=== PATIENT | male | born 2005 | race Caucasian/White ===

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

== ENCOUNTER 2024-09-17 22:14 | Emergency (ER) | payer OTHER, SELFPAY ==
[2024-09-17 22:16] VITALS: BP 155/99; PULSE 153; RESP 40; TEMP 37.7; O2SAT 100; BMI 24.7
--- NOTE | 2024-09-17 22:36 | EDS_ITS ---
HPI History of Present Illness Chief Complaint: General Illness Detail of Chief Complaint: Fever and not feeling well Informant: patient and parent Narrative Narrative: Patient presents to the emergency department complaint of a fever as well as body aches. He started with symptoms 5 days ago. Initially developed body aches as well as ear pain and sore throat. He had a headache. 3 days ago got tested for influenza and was negative. He then went to another urgent care the following day and was tested for COVID flu and also had a chest x-ray and these were all negative. He also was negative for strep. Patient's been taken ibupr ofen every 8 hours and continues to have a fever. He denies nausea or vomiting. He denies diarrhea. Denies significant abdominal pain. Denies neck pain. Patient has some history of some chronic back pain and had an epidural injection 18 days ago. [facility] Medical History (Updated 09/18/24 @ 00:[address] Ruel Stanley, DO) Acute otitis externa of right ear Post covid-19 condition, unspecified Acute bronchitis, unspecified Routine sports physical exam Allergy/AdvReac Type Severity Reaction Status Date / Time No Known Allergies Allergy Verified 09/17/24 22:16 Social History (Updated 09/17/24 @ 22:28 by Christine James) household members: family housing: house Smoking Status: Never smoker ROS ROS ED Review of Systems ROS Unobtainable: other Constitutional Constitutional ED: Reports chills, fever(s) and lethargy; Denies sweats or weight loss Eyes Eyes: Denies blurry vision, change in vision or diplopia ENT ENT ED: Denies rhinorrhea or sore throat Cardiovascular Cardiovascular: Denies chest pain, orthopnea or racing heartbeat Respiratory/Chest Respiratory/Chest: Reports cough, dyspnea and dyspnea on exertion; Denies orthopnea or sputum Gastrointestinal Gastrointestinal: Denies abdominal pain, diarrhea, nausea or vomiting Genitourinary Genitourinary ED: Denies dysuria, hematuria or urinary frequency Musculoskeletal Musculoskeletal: Reports myalgias; Denies arthralgias, back pain or neck pain Integumentary Denies abscess, Abrasions or rash Neurologic Neurologic: Reports headache(s); Denies weakness Psychiatric Psychiatric: Denies anxiety, depression or suicidal thoughts Endocrine Endocrinology: Denies polydipsia, polyphagia or polyuria Hematologic/Lymphatic Hematologic/Lymphatic: Denies easy bleeding, easy bruising or lymphadenopathy Allergic/Immunologic Allergic/Immunologic ED: Denies mouth swelling, tongue swelling or urticaria EXAM Physical Exam Const Vital Signs: 09/17/24 22:16 09/17/24 22:28 09/17/24 23:15 Temperature 100 F H Temperature Source Oral Pulse Rate 153 H 78 Respiratory Rate 40 H 18 Respiratory Effort Normal Short of Breath Blood Pressure 155/99 H 142/80 H Blood Pressure Mean 117 100 Pulse Ox 100 98 Oxygen Delivery Method Room Air Positive well nourished and well developed General Appearance ED: well developed and NAD HEENT Reports TM's clear and moist mucous membranes normocephalic and atraumatic; Negative for trauma or tenderness Tympanic Membrane ED: Yes TM's clear Eyes PERRL and EOMs intact bilaterally General Eye ED: Negative for pale conjunctiva or scleral icterus Neck no lymphadenopathy, supple and no JVD Neck Narrative: No nuchal rigidity, negative Kernig's, negative presents he signed General: Negative for tenderness Chest Wall inspection of chest normal and palpation of chest normal Chest: Negative for tenderness Resp normal respiratory effort and clear to auscultation bilaterally Effort and Inspection: Negative for respiratory distress or pain with movement Auscultation: Negative for rhonchi, wheezes or diminished lung sounds Cardio regular rate, regular rhythm, S1 normal heart sound, S2 normal heart sound and no murmurs Peripheral Pulses: pulses 2+ throughout GI normal to inspection, nondistended, normoactive bowel sounds, soft to palpation, non-tender, non-distended and no masses Back/Spine no CVA tenderness and no thoracic nor lumbar tenderness Extremity normal to inspection General Extremety ED: Negative for edema General Extremity: Negative for edema Neuro oriented x3, CN's II-XII intact bilaterally, no sensory deficits noted and gait normal Sensorium / Orientation: awake, alert, oriented to person, oriented to place and oriented to time Motor Exam: strength 5/5 throughout and strength abnormal Psych mental status grossly normal Skin no rashes or lesions noted and no wounds MDM MDM MDM Narrative Medical decision making narrative: Patient presents with fever x 5 days. Initially started with sore throat and headache and bodyaches. He said slight cough. Negative testing for COVID and flu as well as strep. Clinically appears ill but nontoxic appearing. IV line established. Liter normal saline fluid bolus given. He was medicated with Toradol 30 mg IV. CBC with differential obtained showed white count 12.4 with hemoglobin 14.8 and platelet count of 237. Chemistries unremarkable. Monotest negative. HIV test nonreactive. I did send off a respiratory panel. Results of respiratory panel will be pending. 1 view chest x-ray obtained on my interpretation showed no evidence of infiltrate or acute disease process. Clinically do not feel he has meningitis. He has had no urinary symptoms. Suspect likely viral etiology. Recommended fever control and symptomatic treatment. Will refer to primary care physician on-call for no doctor. Patient did have an epidural injection 3 weeks ago approximately. He has not had much pain relief with that. He denies worsening back pain and he has no radiculopathic type symptoms. I do not feel that to be the cause of his fever. Lab Data Attestation: I reviewed the patient's lab results. Labs: Laboratory Results - last 24 hr 09/17/24 09/17/24 22:31 23:01 WBC 12.4 H RBC 4.95 Hgb 14.8 Hct 43.6 MCV 88.1 MCH 29.9 MCHC 33.9 RDW Std Deviation 49.1 H RDW Coeff of Mark 15.2 H Plt Count 237 MPV 10.8 Immature Gran % (Auto) 0.300 Neut % (Auto) 64.3 Lymph % (Auto) 19.5 [place] % (Auto) 15.1 H Eos % (Auto) 0.4 Baso % (Auto) 0.4 Absolute Neuts (auto) 8.0 H Absolute Lymphs (auto) 2.41 Nucleated RBC % 0 Diff Path Review May foll Sodium 139 Potassium 3.6 Chloride 99 Carbon Dioxide 21.9 Anion Gap 18 H BUN 16 Creatinine 1.17 Estim Creat Clear Calc 98.25 Est GFR (MDRD) Non-Af 92 BUN/Creatinine Ratio 14.0 Glucose 121 H Calcium 9.6 Monoscreen Negative HIV 1&2 Antibody Nonreactive Radiography Diagnostic Testing: Clinical Impression(s) from Imaging Studies Chest X-Ray 09/17/24 23:05 IMPRESSION: No evidence of acute disease. Reading Location: [facility] 1 view chest x-ray obtained interpreted by myself as no evidence of infiltrate or pneumothorax or acute disease process. Discharge Plan Triage Chief Complaint: General Illness ED Provider: Ruel Stanley Dx/Rx/DC Orders Clinical Impression: Fever Instructions: ED FUO Adult Primary Care Provider: Soha De Leon Referrals: Soha De Leon MD [Primary Care Provider] - Zander Manrique MD [Med Staff - Active Staff] - 3-5 Days Print Language: Vietnamese Disposition Disposition: Home, Self Care
[2024-09-17] MEDS: Ketorolac 30 MG/ML Syringe IV (22:41)
[2024-09-17] MEDS: 0.9% Normal Saline (1000mL) 1,000 ML 1000 ML IV (22:41)
[2024-09-17 22:44] LABS: Absolute Lymphocyte Count 2.41 X10^3/uL (0.83-4.51); Basophil# 0.05 X10^3/uL; Basophil% 0.4 % (0-1); Eosinophil# 0.05 X10^3/uL; Eosinophils% 0.4 % (0-5); Hematocrit 43.6 % (40-54); Hemoglobin 14.8 g/dL (13.0-16.5); Lymphocyte # 2.41 X10^3/ul (0.83-4.51); Lymphocyte % 19.5 % (19-41); Mean Corp Hgb Conc 33.9 g/dL (32-36); Mean Corpuscular Hgb 29.9 pg (27.0-32.0); Mean Corpuscular Volume 88.1 fL (80-94); Mean Platelet Vol. 10.8 fl (6.2-12.0); Monocyte# 1.87 X10^3/uL; Monocyte% 15.1 % (0-10); NRBC Flagged by Analyzer 0 % (0-5); Neutrophil # 7.97 X10^3/uL (2.7-7.7); Neutrophil % 64.3 % (47-70); POSITIVE DIFFERENTIAL YES; Platelet Count 237 K/mm3 (150-450); RBC Distribution Width CV 15.2 % (11.6-14.6); RBC Distribution Width SD 49.1 fl (35.1-43.9); Red Blood Count 4.95 M/mm3 (4.6-6.2); White Blood Count 12.4 K/mm3 (4.4-11.0)
[2024-09-17 23:02] LABS: BUN 16 mg/dL (4-19); Calcium,Total 9.6 mg/dL (7.6-11.0); Carbon Dioxide 21.9 mmol/L (21.0-32.0); Chloride 99 mmol/L (98-108); Creatinine, Serum 1.17 mg/dL (0.70-1.20); EST Glomerular Filtration Rate 92 (>60); Estimated Creatinine Clearance 98.25 ml/min (50-250); Glucose 121 mg/dL (70-99); Potassium 3.6 mmol/L (3.3-5.1); Sodium Level 139 mmol/L (133-145)
[2024-09-17 23:03] LABS: Anion Gap 18 (5-15)
--- NOTE | 2024-09-17 23:05 | RAD_ITS ---
PROCEDURE: CHEST 1 VIEW (PORTABLE) 09/17/2024 REASON FOR EXAM: COUGH TECHNIQUE: Frontal view of the chest. COMPARISON: 12/31/2022 FINDINGS: The lungs appear clear. The cardiac and mediastinal contours appear within limits. The visualized osseous structures appear within limits. RAD/Chest 1 View (Portable) IMPRESSION: No evidence of acute disease. Reading Location: [id number]
[2024-09-17 23:15] VITALS: BP 142/80; PULSE 78; RESP 18; O2SAT 98
[2024-09-17 23:15] LABS: Internal QC Validated? YES +Cl - CLEAR BKGD; Monotest Negative (Negative)
[2024-09-17 23:16] LABS: Record Kit Lot#, Mono 13241430
[2024-09-17 23:41] LABS: Pathologist Review May foll
[2024-09-17 23:58] LABS: HIV Nonreactive (Nonreactive)
[2024-09-18 00:20] VITALS: BP 142/80; PULSE 78; RESP 18; TEMP 37.6; O2SAT 98
== END 2024-09-18 00:20 | disposition home or self-care (01) ==
PROVIDERS: Emergency Provider Emergency Medicine; PCP Pediatrics; Referring Provider Emergency Medicine; Visit Provider Emergency Medicine
DX: R50.9 Fever, unspecified (principal); R51.9 Headache, unspecified
CPT/HCPCS: 71045; 80048; 85025; 86308; 86703; 87040; 87633; 96361; 96374; 99283; A4216

== ENCOUNTER → 2025-03-01 | Outpatient (CLI) | payer OTHER, SELFPAY ==
[2025-03-01 11:25] LABS: Ferritin 63 ng/mL (37-417)
[2025-03-01 11:36] LABS: Iron 80 ug/dL (65-175); Iron Binding Capacity,Total 292 ug/dL (250-450); Iron Binding Capacity,Unsat 212 ug/dL (228-428)
[2025-03-02 06:07] LABS: Transferrin 247 mg/dL (177-329)
== END | disposition home or self-care (01) ==
DX: R79.0 Abnormal level of blood mineral (principal)
CPT/HCPCS: 36415; 82728; 83540; 83550; 84466